=== PATIENT | male | born 1990 | race Two or more races ===

== ENCOUNTER 2022-03-05 22:55 | Inpatient (IN) | payer OTHER ==
[~2022-03-05] VITALS: Ht 152.4 cm; Wt 60.8 kg
== END 2022-03-08 14:21 | disposition home or self-care (01) | DRG 310 ==
LOC: ER 22:55 → MEDI 03-06 11:19 → SEC-K 03-06 11:19 → MEDI 03-06 14:14
PROVIDERS: ADMIT Specialist; ATTEND Specialist
PROC: B24BZZZ Ultrasonography of Heart with Aorta (ICD-10-PCS; principal; 2022-03-06)
PROC: 4A12X4Z Monitoring of Cardiac Electrical Activity, External Approach (ICD-10-PCS; 2022-03-06)
DX: I48.20 Chronic atrial fibrillation, unspecified (principal); R55 Syncope and collapse; I95.89 Other hypotension; Z20.822 Contact with and (suspected) exposure to COVID-19